=== PATIENT | male | born 1970 | race Caucasian/White ===

== ENCOUNTER 2023-02-26 10:40 | Day surgery (SDC) | payer BC ==
[~2023-02-26 10:40] MED LIST: Propofol 200 MG/20 ML SDV ONE
[2023-02-26] MEDS ORDERED: Sodium Chloride 0.9% 10 ML Syringe FLUSH PRN (11:00)
[2023-02-26] MEDS ORDERED: Lactated Ringers 1,000 ML IV SCH (11:00)
[2023-02-26] MEDS ORDERED: Propofol 200 MG/20 ML SDV ONE (12:43)
== END 2023-02-26 13:30 | disposition home or self-care (01) ==
LOC: LL.SDS 10:40
PROVIDERS: ATTEND Surgery
DX: Z12.11 Encounter for screening for malignant neoplasm of colon (principal); K62.1 Rectal polyp; D12.5 Benign neoplasm of sigmoid colon; L72.3 Sebaceous cyst; L98.9 Disorder of the skin and subcutaneous tissue, unspecified; L91.8 Other hypertrophic disorders of the skin; F17.210 Nicotine dependence, cigarettes, uncomplicated; Z80.0 Family history of malignant neoplasm of digestive organs; Z88.2 Allergy status to sulfonamides
CPT/HCPCS: 00812; J2704; J7120